=== PATIENT | female | born 1965 | race Caucasian/White ===

== ENCOUNTER 2017-02-20 14:47 | Emergency (ER) | payer OTHER ==
[~2017-02-20] VITALS: Ht 160 cm; Wt 108.3 kg
[~2017-02-20 14:47] MED LIST: ACET-2723 PO; ALBU18HF2 ORAL INH; ATOR80TA76 PO; BENZ-16 PO; BISO1TAB32 PO; BUME1TAB17 PO; BUTA1CAP53 PO; FLUT16SP NAS; HYDR50TA48 PO; IBUP200C62 PO; METH750T3 PO; OMEP20CA10 PO; PREG150C PO; PROP20TA7 PO; TRAZ-173 PO; VENL150C2 PO
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
--- OUTSIDE RECORDS SUMMARY | 2017-02-20 14:55 | XMS REPORT | Continuity of Care Document ---
Author Author Henrik [facility] LIVE Organization [facility]IVE Address Unknown Phone Unavailable Support Name Relationship Address Phone ELOINA SADLER MD Caregiver [address] [place] [address] [place] [id number] GRACIELA KOTHARI APRN Caregiver [address] [place] [address] MAGDALENA BURDEN Next Of Kin [address], [place] [id number] CP Insurance Providers Payer Name Policy Number Subscriber Name Relationship Self Pay Nina Burden 19 Self Advance Directives Directive Response Recorded Date/Time Advanced Directives Type None 09/05/14 1:34pm Problems Medical Problems Problem Onset Date Status bronchitis-acute and chronic Unknown Active Costochondritis Unknown Active Medications Medication Dose Route Sig [...] 1 Tab PO DAILY 10/26/11 06/29/12 Discontinued Hydrocodone Bit/Acetaminophen 1 Tab PO EVERY 4 HOURS 01/21/12 Active Esomeprazole Mag Trihydrate 40 Mg PO DAILY [...] EVERY 6-8 HOURS 15 Qty 09/05/14 Active Meloxicam 1 Tab PO DAILY 7 Qty 09/05/14 Active Social History Social History Problem Response Recorded Date/Time Smoking Status Never smoker 09/05/2014 12:52pm Chewing Tobacco Status No 02/06/2014 6:29pm Hx Substance Use No 09/05/2014 12:52pm Hx Alcohol Use No 09/05/2014 12:52pm Query Response Start Date Stop Date Smoking Status Never smoker Hospital Discharge Instructions No hospital discharge instructions. Plan of Care No plan of care. Functional Status Query Response Date Recorded Physical Hygiene Self September 05, 2014 12:52pm Disabilities None September 05, 2014 12:52pm Devices Used None September 05, 2014 12:52pm Dressing Self September 05, 2014 12:52pm Ambulation Self September 05, 2014 12:52pm Diet Self September 05, 2014 12:52pm Mental Status Alert Oriented September 05, 2014 12:52pm Disabilities None September 05, 2014 12:52pm Devices Used None September 05, 2014 12:52pm Physical Hygiene Self September 05, 2014 12:52pm Dressing Self September 05, 2014 12:52pm Ambulation Self September 05, 2014 12:52pm Diet Self September 05, 2014 12:52pm Allergies, Adverse Reactions, Alerts Allergen Type Severity Reaction Status Last Updated No Known Drug Allergies Allergy Unknown Active 09/05/14 Immunizations Name Given Type Hx Influenza Vaccination No Historical Hx Pneumococcal Vaccination Y 2006 Historical Hx Tetanus, Diptheria, Pertussis Y 07/04/11 Historical Hx Influenza Vaccination No Historical Hx Tetanus, Diptheria, Pertussis Y 07/04/11 Historical Vital Signs Acute Vital Signs Vital Response Date/Time Temperature (Fahrenheit) 97.4 deg F (96.8 - 99.1) Temperature (Calculated Celsius) 36.00151 degrees C (36.0 - 37.3) Pulse Rate (adult) 78 bpm (60 - 100) Respiratory Rate 16 breaths/min (10 - 20) O2 Sat by Pulse Oximetry 95 % (90 - 100) Blood Pressure 151/78 mm Hg Height 5 ft 3 in Weight 253 lb Body Mass Index 44.0 kg/m^2 Results Test Source Date Result Interp. Ref. Range Comments Activated Partial Thromboplast Time October 17, 2010 6:22pm 26.3 SEC N 24-36 Alanine Aminotransferase (ALT/SGPT) February 06, 2014 7:00pm 50 U/L N 9-52 Albumin February 06, 2014 7:00pm 5.1 G/DL H 3.5-5.0 Albumin/Globulin Ratio February 06, 2014 7:00pm 1.7 RATIO N 1.1-2.2 Alkaline Phosphatase February 06, 2014 7:00pm 130 U/L H 38-126 Amylase Level September 22, 2012 5:55pm 60 U/L N 30-110 Anion Gap February 06, 2014 7:00pm 16 MEQ/L H 5-15 Aspartate Amino Transf (AST/SGOT) February 06, 2014 7:00pm 40 U/L H 14-36 B-Type Natriuretic Peptide October 17, 2010 6:22pm < 15 PG/ML L 15-100 BUN/Creatinine Ratio February 06, 2014 7:00pm 14 RATIO N 6-26 Basophils # (Auto) February 06, 2014 7:00pm 0.0 T/MM3 N 0-0.2 Basophils (%) (Auto) February 06, 2014 7:00pm 0.5 % N 0-2 Blood Urea Nitrogen February 06, 2014 7:00pm 13.0 MG/DL N 7-17 Calcium Level February 06, 2014 7:00pm 9.7 MG/DL N 8.4-10.2 Calculated Osmolality February 06, 2014 7:00pm 274 MOSM/KG N 261-280 Carbon Dioxide Level February 06, 2014 7:00pm 27 MEQ/L N 22-30 Chloride Level February 06, 2014 7:00pm 99 MEQ/L N 98-107 Conjugated Bilirubin September 22, 2012 5:55pm 0.00 MG/DL N 0.00-0.30 Creatinine February 06, 2014 7:00pm 0.9 MG/DL N 0.7-1.2 D-Dimer October 17, 2010 6:22pm < 150 NG/ML 0-230 <224 NG/ML= PRESUMPTIVE NEGATIVE FOR PE OR DVT>224 NG/ML=ADDITIONAL EVALUATION FOR PE OR DVT RECOMMENDED Eosinophils # (Auto) February 06, 2014 7:00pm 0.1 T/MM3 N 0-0.5 Eosinophils (%) (Auto) February 06, 2014 7:00pm 0.9 % N 0-4 Follicle Stimulating Hormone February 20, 2011 12:25pm 54.4 MIU/ML - Male: 1.0 - 42.5 Jena/mLFemale Ovulating: Follicular Phase: 2.7 - 15.4 mIU/mL, Peak: 3.9 - 22.0 Jena/mL, Luteal phase: 1.0 - 14.4 mIU/mL, Postmenopausal: 25.0 - 160.0 mIU/mL Globulin February 06, 2014 7:00pm 3.0 G/DL N 2.4-3.6 Glucose Level February 06, 2014 7:00pm 112 MG/DL H 65-110 Helicobacter pylori Antibodies September 22, 2012 5:55pm Negative - Hematocrit February 06, 2014 7:00pm 43.1 % N 36-46 Hemoglobin February 06, 2014 7:00pm 15.2 GM/DL N 12-16 Human Chorionic Gonadotropin, Qual October 17, 2010 6:22pm Negative - Lipase February 06, 2014 7:00pm 128 U/L N 23-300 Luteinizing Hormone February 20, 2011 12:25pm 11.9 MIU/ML - Male: 1.7 - 11.2 mIU/mLFemale Ovulating: Follicular Phase: 1.7 - 13.3 mIU/mL, Peak: 4.1 - 68.7 mIU/mL, Luteal phase: 0.5 - 19.8 mIU/mL, Postmenopausal: 14.4 - 62.2 mIU/mL Lymphocytes # (Auto) February 06, 2014 7:00pm 4.0 T/MM3 N 1-4.8 Lymphocytes (%) (Auto) February 06, 2014 7:00pm 53.3 % H 23-45 Mean Corpuscular Hemoglobin February 06, 2014 7:00pm 30.9 UUG N 26-34 Mean Corpuscular Hemoglobin Concent February 06, 2014 7:00pm 35.3 GM/DL N 31-37 Mean Corpuscular Volume February 06, 2014 7:00pm 87.6 UM3 N 80-100 Mean Platelet Volume February 06, 2014 7:00pm 9.4 UM3 N 9.4-12.4 Monocytes # (Auto) February 06, 2014 7:00pm 0.6 T/MM3 N 0-0.8 Monocytes (%) (Auto) February 06, 2014 7:00pm 8.3 % N 0-9.0 Neutrophils # (Auto) February 06, 2014 7:00pm 2.7 T/MM3 N 1.8-7.7 Neutrophils (%) (Auto) February 06, 2014 7:00pm 36.9 % N 33-66 Ova and Parasites (LAB) July 24, 2009 2:50pm Sent out - Phenytoin (Dilantin) Level September 22, 2012 5:55pm 6.3 UG/ML L 10-20 Platelet Count February 06, 2014 7:00pm 259 T/MM3 N 130-400 Potassium Level February 06, 2014 7:00pm 3.3 MEQ/L L 3.6-5 Prolactin September 01, 2008 4:13pm Send out - Prothromb Time International Ratio October 17, 2010 6:22pm 1.07 N 0.86- 1.10 THERAPUTIC RANGE=2.00-3.00 FOR ANTI-THROMBOSIS THERAPUTIC RANGE=2.50- 3.50 FOR IMPLANTED VALVE RDW Standard Deviation February 06, 2014 7:00pm 37.8 FL N 36.9-50.2 Red Blood Count February 06, 2014 7:00pm 4.92 M/MM3 N 4.00-5.20 Sodium Level February 06, 2014 7:00pm 142 MEQ/L N 134-144 Stool Fat, Qualitative July 24, 2009 2:50pm Sent out - Stool Occult Blood July 24, 2009 2:50pm Negative - Stool for White Cells July 24, 2009 2:50pm Negative - Thyroid Stimulating Hormone (TSH) June 10, 2012 11:55am 2.11 MIU/L N 0.47-4.68 Total Bilirubin February 06, 2014 7:00pm 0.50 MG/DL N 0.20-1.30 Total Protein February 06, 2014 7:00pm 8.1 G/DL N 6.3-8.2 Troponin I October 17, 2010 6:22pm 0.001 ng/ml N 0-0.12 Unconjugated Bilirubin September 22, 2012 5:55pm 0.00 MG/DL N 0.00-1.10 Urine Amphetamines Screen September 01, 2008 4:05pm [...] - Has specimen been collected/obtained? Y Urine Cocaine Screen September 01, 2008 4:05pm [...] Has specimen been collected/obtained? Y Urine Specific [place] September 05, 2014 12:42pm 1.015 - Has [...] been collected/ obtained? Y White Blood Count February 06, 2014 7:00pm 7.4 T/MM3 N 4.5-11.0 Chemistry Specimen Hemolysis February 06, 2014 7:00pm < 15 0-25 0-25: No Hemolysis.26-70: Slight Hemolysis - can falsely elevate K and Urine Protein. 71-285: Moderate Hemolysis - can falsely elevate K, Troponin I, CA 19-9, PTH, CSF GLucose, and Urine Protein, and can falsely decrease Phenytoin. 286-999: Gross Hemolysis - can falsely elevate K, Troponin I, CA 19-9, PTH, CSF Glucose, and Urine Protine, and can falsely decrease Phenytoin. Recommend specimen recollection. Urinalysis Comment September 05, 2014 12:42pm Microscopic not ind. - Has specimen been collected/obtained? Y Lab Scanned Report September 23, 2012 12:33pm LAB TEST FORM REQUEST [id number] - EKG September 01, 2008 2:15pm Complete - Urine Cannabinoids Screen September 01, 2008 4:05pm Negative - Turbidity February 06, 2014 7:00pm < 20 0-20 Glomerular Filtration Rate Calc February 06, 2014 7:00pm 67 - Immature Granulocyte # (Auto) February 06, 2014 7:00pm 0.01 T/MM3 N 0.00- 0.03 Immature Granulocyte % (Auto) February 06, 2014 7:00pm 0.1 % N 0.0-0.5 Icterus Index February 06, 2014 7:00pm < 2 0-7 Urine Microscopic Not Indicated September 22, 2012 6:42pm Not indicated - Has specimen been collected/obtained? Y Urine Culture Urine, Clean Catch Voided October 06, 2011 2:08pm Escherichia Coli Helicobacter pylori Rapid Urease Gastric Biopsy October 02, 2012 10:17am Name: NINA BURDEN Unit #: [id number] : 1965 Sex: F Loc / Svc: ED DOS: 09/05/14 Signed Report #: [id number] DIAGNOSTIC IMAGING REPORT TYPE OF EXAM: CHEST, PA & LATERAL Dictated By: DEMETRIO CARRILLO MD INDICATION: ITS.REASON: back pain CHEST 2-VIEWS UPRIGHT (PA & LAT): COMPARISON: October 17, 2010 FINDINGS: The lungs are mildly hypoinflated, but clear without evidence of focal abnormal airspace opacity. There is no pleural effusion or pneumothorax. The heart size, mediastinal contours and pulmonary vascularity are within normal limits. There is no significant skeletal abnormality. IMPRESSION: No acute cardiopulmonary disease. . Procedures No known history of procedures. Encounters Encounter Location Date/Time Departed Emergency Room [facility] 09/05/14 12:13pm Recent Diagnosis
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
--- OUTSIDE RECORDS SUMMARY | 2017-02-20 15:01 | XMS REPORT | Continuity of Care Document ---
Author Author [facility] LIVE Organization [facility] LIVE Address Unknown Phone Unavailable Support Name Relationship Address Phone GRACIELA KOTHARI APRN Caregiver [address] [place], [place] [phone] JEREMIAH BARNARD MD Caregiver [address] [place] [address] [place] [phone] MAGDALENA BURDEN Next Of Kin [address] [place] [address] CP Insurance Providers Payer Name Policy Number Subscriber Name Relationship [facility] [id number] Nina Burden 19 Self Problems Medical Problems [...] HCl 1 Cap PO DAILY 12/19/14 Active Azithromycin 0 PO DAILY 6 Qty TAKE TWO TABLETS ON DAY ONE, 12/29/14 Active Albuterol Sulfate 2 Puff INH Q4H PRN SHORTNESS OF AIR 10 Days 12/29/14 Active Social History Social History Problem Response Recorded Date/Time Chewing Tobacco Status No 02/06/2014 6:29pm Hx Substance Use No 12/29/2014 4:53pm Hx Alcohol Use No 12/29/2014 4:53pm Has the pt used tobacco in the last 12 months No 11/30/2014 1:46pm Tobacco Usage none 09/05/2014 1:19pm Query Response Start Date Stop Date Smoking Status Unknown if ever smoked Hospital Discharge Instructions No hospital discharge instructions. Plan of Care No plan of care. Functional Status Query Response Date Recorded Physical Hygiene Self December 29, 2014 4:53pm Disabilities None December 29, 2014 4:53pm Devices Used None December 29, 2014 4:53pm Dressing Self December 29, 2014 4:53pm Ambulation Self December 29, 2014 4:53pm Diet Self December 29, 2014 4:53pm Mental Status Alert Oriented December 29, 2014 4:53pm Disabilities None December 29, 2014 4:53pm Devices Used None December 29, 2014 4:53pm Physical Hygiene Self December 29, 2014 4:53pm Dressing Self December 29, 2014 4:53pm Ambulation Self December 29, 2014 4:53pm Diet Self December 29, 2014 4:53pm Allergies, Adverse [...] Vital Signs Vital Response Date/Time Temperature (Fahrenheit) 100.8 deg F (96.8 - 99.1) Temperature (Calculated Celsius) 38.95556 degrees C (36.0 - 37.3) Pulse Rate (adult) 80 bpm (60 - 100) Respiratory Rate 16 breaths/min (10 - 20) O2 Sat by Pulse Oximetry 93 % (90 - 100) Blood Pressure 128/64 mm Hg Height 5 ft 3 in Weight 248 lb Body Mass Index 44.0 kg/m^2 Results [...] 23, 2012 12:33pm LAB TEST FORM REQUEST [id number] - Lipase February 06, 2014 7:00pm 128 [...] Has specimen been collected/obtained? Y Urine Specific [place] September 05, 2014 12:42pm 1.015 - Has [...] Escherichia Coli Name: NINA BURDEN Unit #: [id number] : 1965 Sex: F Loc / Svc: ED DOS: 12/29/14 Signed Report #: [id number] DIAGNOSTIC IMAGING REPORT TYPE OF EXAM: CHEST, [...] pneumonia. . Procedures Procedure Status Date Provider(s) INFLUENZA A/B AG EIA completed 12/19/14 THER/PROPH/DIAG INJ SC/IM completed 12/19/14 THER/PROPH/DIAG INJ SC/IM completed 12/19/14 THER/PROPH/DIAG INJ SC/IM completed 12/19/14 EMERGENCY DEPT VISIT completed 12/19/14 [id number]"INJECTION, KETOROLAC TROMETHAMINE, PER 15 MG" completed 12/19/14 [id number]"INJECTION, ORPHENADRINE CITRATE, UP TO 60 MG" completed 12/19/14 [id number]"INJECTION, PROMETHAZINE HCL, UP TO 50 MG" completed 12/19/14 Encounters Encounter Location Date/Time Departed Emergency Room 12/29/14 2:57pm Departed Emergency Room 12/19/14 11:17am Recent Diagnosis
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
--- OUTSIDE RECORDS SUMMARY | 2017-02-20 15:03 | XMS REPORT | Continuity of Care Document ---
Author Author [facility] LIVE Organization [facility]IVE Address Unknown Phone Unavailable Support Name Relationship Address Phone GRABIEL WALLACE MD Caregiver [address] [place] [address] OLIMPIA ESPINAL MD Caregiver [address] [place] [address] GRACIELA KOTHARI APRN Caregiver [address] [place] [address] MAGDALENA BURDEN Next Of Kin [address] [place] [address] CP Insurance Providers Payer Name Policy Number Subscriber Name Relationship [facility] [id number] Nina Burden 19 Self Advance Directives Directive Response Recorded Date/Time Resuscitation Documents on File Yes 11/30/14 1:47pm Problems Medical Problems Problem Onset Date Status [...] Vital Signs Vital Response Date/Time Temperature (Fahrenheit) 97.1 deg F (96.8 - 99.1) Temperature (Calculated Celsius) 36.41057 degrees C (36.0 - 37.3) Pulse Rate (adult) 64 bpm (60 - 100) Respiratory Rate 20 breaths/min (10 - 20) O2 Sat by Pulse Oximetry 97 % (90 - 100) Oxygen Delivery Method Room Air Blood Pressure 118/59 mm Hg Blood Pressure Source Automatic Cuff Height 5 ft 3 in Weight 250 lb Body Mass Index 44.0 kg/m^2 Results [...] 23, 2012 12:33pm LAB TEST FORM REQUEST [id number] - Lipase February 06, 2014 7:00pm 128 [...] Has specimen been collected/obtained? Y Urine Specific [place] September 05, 2014 12:42pm 1.015 - Has [...] Escherichia Coli Name: NINA BURDEN Unit #: [id number] : 1965 Sex: F Loc / Svc: ED DOS: 12/29/14 Signed Report #: [id number] DIAGNOSTIC IMAGING REPORT TYPE OF EXAM: CHEST, [...] 12/19/14"INJECTION, KETOROLAC TROMETHAMINE, PER 15 MG" completed 12/19/14"INJECTION, ORPHENADRINE CITRATE, UP TO 60 MG" completed 12/19/14157848"INJECTION, PROMETHAZINE HCL, UP TO 50 MG" completed [...] completed 12/29/14 Cervical epidural steroid injection completed 01/05/15 GRABIEL WALLACE MD Encounters Encounter Location Date/Time Departed Emergency Room [facility] 12/29/14 2:57pm Departed Emergency Room [facility] 12/19/14 11:17am
--- OUTSIDE RECORDS SUMMARY | 2017-02-20 15:11 | XMS REPORT | Continuity of Care Document ---
Author Author [facility] LIVE Organization [facility]IVE Address Unknown Phone Unavailable Support Name Relationship Address Phone GRABIEL WALLACE MD Caregiver [address] [place] [address] GRACIELA KOTHARI APRN Caregiver [address] [place] [address] [phone] MAGDALENA BURDEN Next Of Kin [address] [place] [address] CP Insurance Providers Payer Name Policy Number Subscriber Name Relationship [facility] [id number] Nina Burden 19 Self Advance Directives Directive [...] F (96.8 - 99.1) Temperature (Calculated Celsius) 36.56025 degrees C (36.0 - 37.3) Pulse Rate [...] - 15.4 mIU/mL, Peak: 3.9 - 22.0 Jnea/mL, Luteal phase: 1.0 - 14.4 mIU/mL, Postmenopausal: [...] 23, 2012 12:33pm LAB TEST FORM REQUEST [id number] - Lipase February 06, 2014 7:00pm 128 [...] Has specimen been collected/obtained? Y Urine Specific [place] September 05, 2014 12:42pm 1.015 - Has [...] Escherichia Coli Name: NINA BURDEN Unit #: [id number] : 1965 Sex: F Loc / Svc: ED DOS: 12/29/14 Signed Report #: [id number] DIAGNOSTIC IMAGING REPORT TYPE OF EXAM: CHEST, [...] SPINE CERV/THORACIC completed 01/05/15 GRABIEL WALLACE MD [id number]"INJECTION, METHYLPREDNISOLONE ACETATE, 80 MG" completed 01/05/15 [id number]"INJECTION, ROPIVACAINE HYDROCHLORIDE, 1 MG" completed 01/05/15 INFLUENZA A/B AG EIA completed 12/19/14 THER/PROPH/DIAG INJ SC/IM completed 12/19/14 THER/PROPH/DIAG INJ SC/IM completed 12/19/14 THER/PROPH/DIAG INJ SC/IM completed 12/19/14 EMERGENCY DEPT VISIT completed 12/19/14"INJECTION, KETOROLAC TROMETHAMINE, PER 15 MG" completed 12/19/14116574"INJECTION, ORPHENADRINE CITRATE, UP TO 60 MG" completed 12/19/14021291"INJECTION, PROMETHAZINE HCL, UP TO 50 MG" completed [...] Encounters Encounter Location Date/Time Departed Emergency Room [facility] 12/29/14 2:57pm Departed Emergency Room [facility] 12/19/14 11:17am
--- OUTSIDE RECORDS SUMMARY | 2017-02-20 15:14 | XMS REPORT | Continuity of Care Document ---
Author Author Henrik [facility] LIVE Organization [facility] LIVE Address Unknown Phone Unavailable Support Name Relationship Address Phone ELOINA SADLER MD Caregiver [address] [place] [address] [place] [phone] GRACIELA KOTHARI APRN Caregiver [address] [place] [address] MAGDALENA BURDEN Next Of Kin [address] [place], [place] [phone] CP Insurance Providers Payer Name Policy Number [...] F (96.8 - 99.1) Temperature (Calculated Celsius) 36.13854 degrees C (36.0 - 37.3) Pulse Rate [...] Has specimen been collected/obtained? Y Urine Specific [place] September 05, 2014 12:42pm 1.015 - Has [...] 23, 2012 12:33pm LAB TEST FORM REQUEST [id number] - EKG September 01, 2008 2:15pm Complete [...] 2012 10:17am Name: NINA BURDEN Unit #: [id number] : 1965 Sex: F Loc / Svc: ED DOS: 09/05/14 Signed Report #: [id number] DIAGNOSTIC IMAGING REPORT TYPE OF EXAM: CHEST, [...] Encounters Encounter Location Date/Time Departed Emergency Room [facility] 09/05/14 12:13pm Recent Diagnosis
--- OUTSIDE RECORDS SUMMARY | 2017-02-20 15:15 | XMS REPORT | Continuity of Care Document ---
Author Author Henrik [facility] LIVE Organization [facility] LIVE Address Unknown Phone Unavailable Support Name Relationship Address Phone GRACIELA KOTHARI APRN Caregiver [address] [place], [place] [phone] ALVIN WEBB MD Caregiver [address] [place] [address] [place] [phone] MAGDALENA BURDEN Next Of Kin [address] [place] [address] CP Insurance Providers Payer Name Policy Number Subscriber Name Relationship [facility] [id number] Nina Burden 19 Self Problems Medical Problems [...] F (96.8 - 99.1) Temperature (Calculated Celsius) 36.11150 degrees C (36.0 - 37.3) Pulse Rate [...] Has specimen been collected/obtained? Y Urine Specific [place] September 05, 2014 12:42pm 1.015 - Has [...] 23, 2012 12:33pm LAB TEST FORM REQUEST [id number] - EKG September 01, 2008 2:15pm Complete [...] Encounters Encounter Location Date/Time Departed Emergency Room [facility] 12/19/14 11:17am Recent Diagnosis
--- NOTE | 2017-02-20 15:17 | NUR ---
RETURNED FROM RADIOLOGY
--- OUTSIDE RECORDS SUMMARY | 2017-02-20 15:19 | XMS REPORT | Continuity of Care Document ---
Author Author [facility] LIVE Organization [facility]IVE Address Unknown Phone Unavailable Support Name Relationship Address Phone GRACIELA KOTHARI APRN Caregiver [address] [place], [place] [phone] JEREMIAH BARNARD MD Caregiver [address] [place] [address] [place] [phone] MAGDALENA BURDEN Next Of Kin [address] [place] [address] CP Insurance Providers Payer Name Policy Number Subscriber Name Relationship [facility] [id number] Nina Burden 19 Self Problems Medical Problems [...] F (96.8 - 99.1) Temperature (Calculated Celsius) 38.08825 degrees C (36.0 - 37.3) Pulse Rate [...] 23, 2012 12:33pm LAB TEST FORM REQUEST [id number] - Lipase February 06, 2014 7:00pm 128 [...] Has specimen been collected/obtained? Y Urine Specific [place] September 05, 2014 12:42pm 1.015 - Has [...] Escherichia Coli Name: NINA BURDEN Unit #: [id number] : 1965 Sex: F Loc / Svc: ED DOS: 12/29/14 Signed Report #: [id number] DIAGNOSTIC IMAGING REPORT TYPE OF EXAM: CHEST, [...] completed 12/19/14 EMERGENCY DEPT VISIT completed 12/19/14 [id number]"INJECTION, KETOROLAC TROMETHAMINE, PER 15 MG" completed 12/19/14 753951"INJECTION, ORPHENADRINE CITRATE, UP TO 60 MG" completed 12/19/14 [id number]"INJECTION, PROMETHAZINE HCL, UP TO 50 MG" completed 12/19/14 Encounters Encounter Location Date/Time Departed Emergency Room [facility] 12/29/14 2:57pm Departed Emergency Room [facility] 12/19/14 11:17am Recent Diagnosis
--- OUTSIDE RECORDS SUMMARY | 2017-02-20 15:19 | XMS REPORT | Continuity of Care Document ---
Author Author [facility] LIVE Organization [facility] LIVE Address Unknown Phone Unavailable Support Name Relationship Address Phone OLIMPIA ESPINAL MD Caregiver [address] [place], [place] [phone] JEREMIAH BARNARD MD Caregiver [address] [place] [address] [place] [phone] MAGDALENA BURDEN Next Of Kin [address] [place] [address] CP Insurance Providers Payer Name Policy Number [...] F (96.8 - 99.1) Temperature (Calculated Celsius) 36.07473 degrees C (36.0 - 37.3) Pulse Rate [...] Has specimen been collected/obtained? Y Urine Specific [place] September 05, 2014 12:42pm 1.015 - Has [...] 23, 2012 12:33pm LAB TEST FORM REQUEST [id number] - EKG September 01, 2008 2:15pm Complete [...] 2012 10:17am Name: NINA BURDEN Unit #: [id number] : 1965 Sex: F Loc / Svc: ED DOS: 09/05/14 Signed Report #: [id number] DIAGNOSTIC IMAGING REPORT TYPE OF EXAM: CHEST, [...] Encounters Encounter Location Date/Time Departed Emergency Room [facility] 09/18/14 1:38pm Departed Emergency Room [facility] 09/05/14 12:13pm Recent Diagnosis
--- OUTSIDE RECORDS SUMMARY | 2017-02-20 15:20 | XMS REPORT | Continuity of Care Document ---
Author Author [facility] LIVE Organization [facility] LIVE Address Unknown Phone Unavailable Support Name Relationship Address Phone GRABIEL WALLACE MD Caregiver [address] [place] [address] OLIMPIA ESPINAL MD Caregiver [address] [place] [address] GRACIELA KOTHARI APRN Caregiver [address] [place] [address] MAGDALENA BURDEN Next Of Kin [address] [place] [address] CP Insurance Providers Payer Name Policy Number Subscriber Name Relationship [facility] [id number] Nina Burden 19 Self Advance Directives Directive [...] F (96.8 - 99.1) Temperature (Calculated Celsius) 36.79437 degrees C (36.0 - 37.3) Pulse Rate [...] 23, 2012 12:33pm LAB TEST FORM REQUEST [id number] - Lipase February 06, 2014 7:00pm 128 [...] Has specimen been collected/obtained? Y Urine Specific [place] September 05, 2014 12:42pm 1.015 - Has [...] Escherichia Coli Name: NINA BURDEN Unit #: [id number] : 1965 Sex: F Loc / Svc: ED DOS: 12/29/14 Signed Report #: [id number] DIAGNOSTIC IMAGING REPORT TYPE OF EXAM: CHEST, [...] ORPHENADRINE CITRATE, UP TO 60 MG" completed 12/19/14898403"INJECTION, PROMETHAZINE HCL, UP TO 50 MG" completed [...] Encounters Encounter Location Date/Time Departed Emergency Room [facility] 12/29/14 2:57pm Departed Emergency Room [facility] 12/19/14 11:17am
--- NOTE | 2017-02-20 15:22 | ERPDOC ---
Departure Disposition Decision Date: Feb 20, 2017 Disposition Decision Time: 15:38 Disposition: 01 DISCHARGED HOME, SELF-CARE Impression Impression Impression: Primary Impression: Sciatica Laterality: left Qualified Codes: M54.32 - Sciatica, left side Severity: Mild Condition: Improved Seen By: Physician only Referrals: VLADIMIR SMITH DO (Family) 2 Days Patient Instructions: Sciatica (ED) Problems/Meds/Labs Reviewed?: Yes Medications reviewed and manag: Yes Follow up care ordered?: Yes Mental Status: Alert, Oriented Scripts Prednisone (Prednisone) 50 Mg Tablet 50 MG PO WB for 5 Days, #5 TAB 0 Refills Take 1 tablet, by mouth, once a day with breakfast. Prov: AVINASH VALLE 02/20/17 HPI - Back Pain General Chief Complaint: Low Back Pain or Injury Stated Complaint: BACK PAIN Time Seen by Provider: 14:57 Source: patient Exam Limitations: no limitations HPI - Back Pain Initial Comments 51-year-old female presents to the emergency department with a typical exacerbation of her chronic back pain. Patient noted onset of symptoms earlier today at approximately 11:30 AM when she picked up the back end of a motorized scooter. She began to feel pain in her lower back radiating down her left leg. Patient describes her pain as moderate. Pain is sharp. Pain increases with movement of the affected area and improves with rest and positioning. Patient denies any other complaints or associated symptoms. Patient was at work when the symptoms began. Symptoms have been persistent in nature since onset. Patient has a long-standing history of chronic back pain. Patient denies any numbness, tingling, fever, chills, saddle anesthesia, loss of bowel or bladder control, anticoagulation, abdominal pain, IV drug abuse, focal weakness, recent procedures on the spine, or other warning signs of back pain. Occurred At: work Onset/Timing: Gradual Allergies: Coded Allergies: No Known Drug Allergies (Verified Allergy, Unknown, 01/16/17) Past History Past Medical History Pt denies signifigant PMH Metabolic: hypercholesterolemia, hypertension GI: GERD, IBS, gallbladder disease Female: UTI Neurological: fibromyalgia, seizures Musculoskeletal: back pain, neck pain Integumentary: eczema Hematologic: anemia Psychological: bipolar, depression, schizophrenia Surgical History Denies Surgeries General: gallbladder, tonsils Reproductive/: hysterectomy Family History Family PMH: FOUND: [place], bipolar, cancer, depression, drug abuse, hypercholesterolemia, hypertension Vaccines Hx Influenza Vaccination: Yes (SEP 2015) Hx Pneumococcal Vaccination: No (03/08/15) Hx Tetanus, Diptheria, Pertuss: Yes (07/04/11) Social History Smoking Status: Never smoker Substance Use Type: does not use Alcohol Intake: none Review of Systems Constitutional Constitutional: DENIES: chills, fever Eyes General: DENIES: erythema, exudate Lids/Accessories: DENIES: erythema, swelling Vision: DENIES: acuity, blurring ENMT Ears: DENIES: drainage, erythema Hearing: DENIES: hearing loss Balance: DENIES: ataxia, falling to one side Sinuses: DENIES: congestion, pain Nose: DENIES: nosebleeds, pain Mouth/Throat: DENIES: painful swallowing, sore throat Teeth: DENIES: pain Jaw: DENIES: pain Cardiovascular Cardiac: DENIES: chest pain, dyspnea on exertion Rhythm/Rate: DENIES: irregular beat, palpitations Vascular: DENIES: pedal edema, unilateral swelling GI Upper Abdomen: DENIES: nausea, pain, vomiting Lower Abdomen: DENIES: diarrhea, pain General: DENIES: dysuria, pain Musculoskeletal General: pain, tenderness, DENIES: joint pain Integumentary Skin: DENIES: itching, rash Neurological General: DENIES: change in strength, headache, numbness, weakness Psychiatric Psychiatric: DENIES: emotional instability, suicidal ideation/attempt Endocrine Endocrine: DENIES: polydipsia, polyphagia Hematologic/Lymphatic Hematologic/Lymphatic: DENIES: frequent nosebleeds, lymphadenopathy Allergic/Immunological Allergic/Immunoligical: DENIES: allergic reactions, hives Physical Exam General General Nourishment: well nourished, well developed, appears stated age, no acute distress, adult General Body Habitus: well groomed Vitals and Pain First Documented Vital Signs Date Time Temp Pulse Resp B/P Pulse Ox O2 Delivery O2 Flow Rate FiO2 02/20/17 14:54 77 16 147/85 98 Room Air Weight: Kilograms: 108.300 Height (feet): 5 Height (inches): 3.00 Triage Pain Scale: RN VS reviewed by Provider: Yes Normal Exams: Head: Normocephalic w/o trauma Eyes: Pupils are PERRLA w/ EOMI, No scleral icterus, irritation, or foreign bodies noted ENMT: No facial trauma, nasal exudates, pharyngeal erythema, or exudates are noted Dental: No fractured, loose, or missing teeth noted Neck: Full range of motion, without adenopathy, JVD, bruits or thyromegaly Chest/Resp: Clear all pettit, with good airflow, and symmetry bilaterally CV: Regular rate and rhythm, without murmur or gallop, Pulses 2+ all extremities, capillary refill, <2 seconds all ext., no pedal edema noted Abdomen: Bowel sounds positive, soft, non-tender, non-distended, no hepatosplenomegaly, masses or bruits noted Lymphatic: No lymphadenopathy, or lymphedema noted Musculoskeletal: No tenderness, or deformity noted, good range of motion, all extremities Integumentary: No rashes, hives, or bruising noted, hair and nails, without abnormality Neurologic: Patient is alert, and oriented, cranial nerves, motor/sensory/ cerebellar, exams w/o gross deficits, to observation Psychiatric: Patient exhibits, appropriate attention, emotion and affect Musculoskeletal (brief) Comments Back - Full range of motion. No midline tenderness or deformity. Tender to palpation over the lower lumbar paraspinal musculature with spasm. Positive straight leg raise on the left. Neurologic (brief) Comments CN 2-12 intact. Alert and oriented x 4. Strength normal. Normal coordination. Normal sensation. Normal speech. Normal gait. Absent Babinski bilaterally. Reflexes 2/4 in all extremities. Normal motor. No focal neurologic deficit. Progress Results/Orders Orders Procedure Category Date Status Time Lumbar Spine 2-3 Views RAD 02/20/17 Resulted 15:03 Orphenadrine (Norflex) PHA 02/20/17 Complete 15:45 Ketorolac (Toradol) PHA 02/20/17 Complete 15:45 Promethazine PHA 02/20/17 Complete (Phenergan) 15:45 Medications Current ED Medications Orphenadrine Citrate (Norflex) 60 mg O ONCE IM Last administered on 02/20/17 15:51; Start 02/20/17 at 15:45; Stop 02/20/17 at 15:47; Status DC Ketorolac Tromethamine (Toradol) 60 mg O ONCE IM Last administered on 15:51; Start 02/20/17 at 15:45; Stop 02/20/17 at 15:47; Status DC Promethazine HCl (Phenergan) 12.5 mg O ONCE IM Last administered on 02/20/17t 15:52; Start 02/20/17 at 15:45; Stop 02/20/17 at 15:47; Status DC Progress Progress Imaging is discussed in detail with the patient and questions are answered. patient was given Toradol 60 mg IM x 1, Norflex 60 mg IM x 1, and Phenergan 12.5 mg IM x 1 with improvement of symptoms. This is a typical exacerbation of the patient's chronic back pain. Patient is discharged home in improved condition. Patient is to follow up as instructed. Patient is to return to the emergency Department if her condition worsens or changes in any manner. Patient is not prescribed narcotic pain medication as she has a history of addiction. Patient is to continue using her methocarbamol at home as previously scheduled and will be administered a prescription of prednisone. She can continue using [id number] acetaminophen as needed for pain control in addition to this regimen. Patient is in agreement with the current plan of management. She is discharged home in improved condition. She is to follow up as instructed. She is to return to the emergency Department if her condition worsens or changes in any manner. Temperature: 37.9 deg. C. Xray Xray : Xray: L-Spine Interpretation: Normal, Reviewed Written Report AVINASH VALLE DO Feb 20, 2017 15:22
--- NOTE | 2017-02-20 15:28 | DI ---
Indication: ITS.REASON: back pain PROCEDURE: LUMBAR SPINE 3 VIEWS: Encounter: Initial Comparison: January 16, 2017 Findings: Alignment of the lumbar spine is stable. No acute fracture or subluxation. Vertebral body heights are maintained. Minimal disk space narrowing at L3-L4 with small osteophytes. The remaining disk spaces are normal. Impression: No acute fracture. Minimal degenerative disk disease at L3-L4. .
[2017-02-20] MEDS ORDERED: PRED50TA PO (15:40)
[2017-02-20] MEDS ORDERED: PROMETHAZINE 25 MG INJECTION IM ONE (15:45)
[2017-02-20] MEDS ORDERED: KETOROLAC 60mg/2ml INJECTION IM ONE (15:45)
[2017-02-20] MEDS ORDERED: ORPHENADRINE 60mg/2ml INJECTION IM ONE (15:45)
[2017-02-20] MEDS ORDERED: BUSP15TA3 PO (15:49)
[2017-02-20] MEDS ORDERED: BUPR100T5 PO (15:50)
--- NOTE | 2017-02-20 15:51 | NUR ---
IM INJECTIONS GIVEN PER ORDERS. RATES PAIN 08/03
[2017-02-20 16:05] VITALS: BP 126/71; PULSE 75; RESP 16; TEMP 97.9; O2SAT 95
== END 2017-02-20 16:05 | disposition home or self-care (01) ==
LOC: ED 14:47
DX: M54.42 Lumbago with sciatica, left side (principal); X50.0XXA Overexertion from strenuous movement or load, initial encounter; Y93.89 Activity, other specified; Y92.9 Unspecified place or not applicable; Y99.0 Civilian activity done for income or pay
CPT/HCPCS: 72100; 96372; 99283; J1885; J2360; J2550

== ENCOUNTER 2017-03-31 19:46 | Emergency (ER) | payer SELFPAY ==
[~2017-03-31] VITALS: Ht 160 cm; Wt 107.8 kg
[~2017-03-31 19:46] MED LIST changes: -ALBU18HF2 ORAL INH; -ATOR80TA76 PO; -BENZ-16 PO; +BUPR100T5 PO; +BUSP15TA3 PO; +FLUT16SP EA NOSTRIL; -FLUT16SP NAS; -HYDR50TA48 PO; -OMEP20CA10 PO; +PRED50TA PO
--- OUTSIDE RECORDS SUMMARY | 2017-03-31 19:51 | XMS REPORT | Continuity of Care Document ---
Author Author [facility] LIVE Organization [facility] LIVE Address Unknown Phone Unavailable Support Name Relationship Address Phone GRABIEL WALLACE MD Caregiver [address] [place] [address] GRACIELA KOTHARI APRN Caregiver [address] [place] [address] [phone] MAGDALENA BURDEN Next Of Kin [address] [place] [address] CP Insurance Providers Payer Name Policy Number Subscriber Name Relationship [facility] [id number] Nina Burden 19 Self Advance Directives Directive [...] F (96.8 - 99.1) Temperature (Calculated Celsius) 36.23616 degrees C (36.0 - 37.3) Pulse Rate [...] 23, 2012 12:33pm LAB TEST FORM REQUEST [id number] - Lipase February 06, 2014 7:00pm 128 [...] Has specimen been collected/obtained? Y Urine Specific [place] September 05, 2014 12:42pm 1.015 - Has [...] Escherichia Coli Name: NINA BURDEN Unit #: [id number] : 1965 Sex: F Loc / Svc: ED DOS: 12/29/14 Signed Report #: [id number] DIAGNOSTIC IMAGING REPORT TYPE OF EXAM: CHEST, [...] SPINE CERV/THORACIC completed 01/05/15 GRABIEL WALLACE MD [id number]"INJECTION, METHYLPREDNISOLONE ACETATE, 80 MG" completed 01/05/15 260842"INJECTION, ROPIVACAINE HYDROCHLORIDE, 1 MG" completed 01/05/15 INFLUENZA A/B AG EIA completed 12/19/14 THER/PROPH/DIAG INJ SC/IM completed 12/19/14 THER/PROPH/DIAG INJ SC/IM completed 12/19/14 THER/PROPH/DIAG INJ SC/IM completed 12/19/14 EMERGENCY DEPT VISIT completed 12/19/14"INJECTION, KETOROLAC TROMETHAMINE, PER 15 MG" completed 12/19/14669331"INJECTION, ORPHENADRINE CITRATE, UP TO 60 MG" completed 12/19/14152753"INJECTION, PROMETHAZINE HCL, UP TO 50 MG" completed [...] Encounters Encounter Location Date/Time Departed Emergency Room [facility] 12/29/14 2:57pm Departed Emergency Room [facility] 12/19/14 11:17am
--- OUTSIDE RECORDS SUMMARY | 2017-03-31 19:54 | XMS REPORT | Continuity of Care Document ---
Author Author [facility]rik [facility] LIVE Organization [facility] LIVE Address Unknown Phone Unavailable Support Name Relationship Address Phone ELOINA SADLER MD Caregiver [address] [place] [address] [place] [phone] GRACIELA KOTHARI APRN Caregiver [address] [place] [address] MAGDALENA BURDEN Next Of Kin [address] [place], [place] [phone] CP Insurance Providers Payer Name Policy Number [...] F (96.8 - 99.1) Temperature (Calculated Celsius) 36.05621 degrees C (36.0 - 37.3) Pulse Rate [...] Has specimen been collected/obtained? Y Urine Specific [place] September 05, 2014 12:42pm 1.015 - Has [...] 23, 2012 12:33pm LAB TEST FORM REQUEST [id number] - EKG September 01, 2008 2:15pm Complete [...] 2012 10:17am Name: NINA BURDEN Unit #: [id number] : 1965 Sex: F Loc / Svc: ED DOS: 09/05/14 Signed Report #: [id number] DIAGNOSTIC IMAGING REPORT TYPE OF EXAM: CHEST, [...] Encounters Encounter Location Date/Time Departed Emergency Room [facility] 09/05/14 12:13pm Recent Diagnosis
--- OUTSIDE RECORDS SUMMARY | 2017-03-31 19:54 | XMS REPORT | Continuity of Care Document ---
Author Author Henrik [facility] LIVE Organization [facility] LIVE Address Unknown Phone Unavailable Support Name Relationship Address Phone GRACIELA KOTHARI APRN Caregiver [address] [place], [place] [phone] ALVIN WEBB MD Caregiver [address] [place] [address] [place] [phone] MAGDALENA BURDEN Next Of Kin [address] [place] [address] CP Insurance Providers Payer Name Policy Number Subscriber Name Relationship [facility] [id number] Nina Burden 19 Self Problems Medical Problems [...] F (96.8 - 99.1) Temperature (Calculated Celsius) 36.72169 degrees C (36.0 - 37.3) Pulse Rate [...] Has specimen been collected/obtained? Y Urine Specific [place] September 05, 2014 12:42pm 1.015 - Has [...] 23, 2012 12:33pm LAB TEST FORM REQUEST [id number] - EKG September 01, 2008 2:15pm Complete [...] Encounters Encounter Location Date/Time Departed Emergency Room [facility] 12/19/14 11:17am Recent Diagnosis
[2017-03-31 19:55] VITALS: BP 155/81; PULSE 107; RESP 20; TEMP 99.1; O2SAT 93; Ht 160 cm; Wt 107.8 kg
--- OUTSIDE RECORDS SUMMARY | 2017-03-31 19:56 | XMS REPORT | Continuity of Care Document ---
Author Author [facility] Organization [facility] Address Unknown Phone Unavailable Support Name Relationship Address Phone AVINASH VALLE DO Caregiver [address] [place] [address] Unavailable STARLA WHITE APRN Caregiver [address] [place] [address] Unavailable MAGDALENA BURDEN Next Of Kin [address] [place] [address] CP Insurance Providers Guarantor Nina Burden Address [address] [place] [phone] CP Email DENIED 17 Payer Workers Compensation Subscriber's Name JeniseNina Relationship 18 Self Advance Directives Directive Response Recorded Date/Time Advanced Directives Type None 02/20/17 2:54pm Chief Complaint and Reason for Visit Chief [...] pneumonia Unknown Acute RML pneumonia Unknown Acute Sciatica Unknown Acute Strep pharyngitis Unknown Acute Thoracic [...] 4 Hours as needed for Pain/Fever 06/11/16 Bisoprolol Fumarate/Hctz (Ziac 5-6.25 Mg Tablet) 1 Each Tablet 1 Tab Oral Daily 05/23/15 Bumetanide 1 Mg Tablet 1 Mg Oral Twice A Day 06/11/16 Bupropion Hcl (Wellbutrin Sr) Unknown Strength Tablet.er 2 Tab Oral Twice A Day 02/20/17 Buspirone Hcl 15 Mg Tablet 15 Mg Oral Daily 02/20/17 Butalb/Acetaminophen/Caffeine (Fioricet 50-300-40 Mg Capsule) 1 Each Capsule 1 Cap Oral Every Eight Hours for Headache 10 10/31/16 Fluticasone Propionate (Fluticasone Prop 50 Mcg/Actuation Nasal [place]) 120 [place]/16 G [place] 1 [place] Intranasal Daily 01/05/16 Ibuprofen 200 Mg Capsule 800 Mg Oral Every 8 Hours as needed for Pain 06/11/16 Methocarbamol 750 Mg Tablet 750 Mg Oral Three Times A Day as needed for Prn Orders 05/23/15 Prednisone 50 Mg Tablet 50 Mg Oral Give With Breakfast 5 Days 5 Tablet Take 1 tablet, by mouth, once a day with breakfast. 02/20/17 Pregabalin (Lyrica) 150 Mg Capsule 150 Mg [...] Applicable Not Applicable Hx Substance Use No 02/20/2017 3:02pm Not Applicable Not Applicable Hx Alcohol Use No 02/20/2017 3:02pm Not Applicable Not Applicable Has the pt used tobacco in the last 12 months No 01/23/2016 10:56pm Not Applicable Not Applicable Tobacco Usage none 01/24/2016 12:13am Not Applicable Not Applicable Query Response Start Date Stop Date Smoking Status Never smoker Hospital Discharge Instructions No hospital discharge instructions. Plan of Care Discharge Date 02/20/17 4:05pm Disposition 01 DISCHARGED HOME, SELF-CARE Condition at Discharge Improved Instructions/Education Provided Sciatica (ED) Prescriptions See Medication Section Referrals VLADIMIR SMITH DO Order Date: 2 Days Address: [address] [place] [phone] Note: Care Plan and Goals Physician Care [...] Y 07/04/11 05/23/15 9:30am Influenza Vaccine Hx 01/201602/20/17 3:02pm Vital Signs Acute Vital Signs Vital Response Date/Time Temperature (Fahrenheit) 97.9 deg F (96.8 - 99.1) 02/20/2017 4:05pm Temperature (Calculated Celsius) 36.02516 degrees C (36.0 - 37.3) 02/20/2017 4:05pm Pulse Rate (adult) 75 bpm (60 - 100) 02/20/2017 4:05pm Respiratory Rate 16 breaths/min (10 - 20) 02/20/2017 4:05pm O2 Sat by Pulse Oximetry 95 % (90 - 100) 02/20/2017 4:05pm Blood Pressure 126/71 mm Hg 02/20/2017 4:05pm Height (Feet) 5 feet 02/20/2017 2:54pm Height (Inches) 3.00 inches 02/20/2017 2:54pm Weight (Kilograms) 108.300 kg 02/20/2017 2:54pm Body Mass Index (BMI) 42.0 01/16/2017 10:32am [...] 12/04/2016 2:15pm Name: NINA BURDEN Unit #: [id number] : 1965 Sex: F Admit Date: Loc / Svc: ED Discharge Date: DIAGNOSTIC IMAGING REPORT Report #: [id number] [facility] [place]ICA [place] Indication: ITS.REASON: back pain PROCEDURE: LUMBAR SPINE 3 VIEWS: Encounter: Initial Comparison: January 16, 2017 Findings: Alignment of the lumbar spine is stable. No acute fracture or subluxation. Vertebral body heights are maintained. Minimal disk space narrowing at L3-L4 with small osteophytes. The remaining disk spaces are normal. Impression: No acute fracture. Minimal degenerative disk disease at L3-L4. . Procedures No known history of procedures. Encounters Encounter Location Arrival/Admit Date Discharge/Depart Date Attending Provider Departed Emergency Room [facility] 02/20/17 2:47pm 02/20/17 4: 05pm AVINASH VALLE DO Departed Emergency Room [facility] 01/16/17 10:14am 01/16/17 12: 25pm AVINASH VALLE DO Registered Clinic [facility] 12/14/16 1:51pm VLADIMIR SMITH DO Registered [facility] 12/04/16 1:39pm VLADIMIR SMITH DO Recent Diagnosis
--- OUTSIDE RECORDS SUMMARY | 2017-03-31 19:58 | XMS REPORT | Continuity of Care Document ---
Author Author [facility] Organization [facility] Address Unknown Phone Unavailable Support Name Relationship Address Phone GRACIELA KOTHARI APRN Caregiver [address] [place], [place] [phone] JEREMIAH BARNARD MD Caregiver [address] [place] [address] [place] [phone] MAGDALENA BURDEN Next Of Kin [address] [place] [address] CP Insurance Providers Payer Name Policy Number Subscriber Name Relationship [facility] [id number] Nina Burden 19 Self Problems Medical Problems [...] F (96.8 - 99.1) Temperature (Calculated Celsius) 38.84734 degrees C (36.0 - 37.3) Pulse Rate [...] 23, 2012 12:33pm LAB TEST FORM REQUEST [id number] - Lipase February 06, 2014 7:00pm 128 [...] Has specimen been collected/obtained? Y Urine Specific [place] September 05, 2014 12:42pm 1.015 - Has [...] Escherichia Coli Name: NINA BURDEN Unit #: [id number] : 1965 Sex: F Loc / Svc: ED DOS: 12/29/14 Signed Report #: [id number] DIAGNOSTIC IMAGING REPORT TYPE OF EXAM: CHEST, PA & LATERAL Dictated By: DEMETROI CARRILLO MD INDICATION: ITS.REASON: cough, fever CHEST [...] completed 12/19/14 EMERGENCY DEPT VISIT completed 12/19/14 [id number]"INJECTION, KETOROLAC TROMETHAMINE, PER 15 MG" completed 12/19/14 838816"INJECTION, ORPHENADRINE CITRATE, UP TO 60 MG" completed 12/19/14 160938"INJECTION, PROMETHAZINE HCL, UP TO 50 MG" completed 12/19/14 Encounters Encounter Location Date/Time Departed Emergency Room [facility] 12/29/14 2:57pm Departed Emergency Room [facility] 12/19/14 11:17am Recent Diagnosis
--- OUTSIDE RECORDS SUMMARY | 2017-03-31 19:58 | XMS REPORT | Continuity of Care Document ---
Author Author [facility] Organization [facility] Address Unknown Phone Unavailable Support Name Relationship Address Phone OLIMPIA ESPINAL MD Caregiver [address] [place], [place] [phone] JEREMIAH BARNARD MD Caregiver [address] [place] [address] [place] [phone] MAGDALENA BURDEN Next Of Kin [address] [place] [address] CP Insurance Providers Payer Name Policy Number [...] F (96.8 - 99.1) Temperature (Calculated Celsius) 36.73981 degrees C (36.0 - 37.3) Pulse Rate [...] Has specimen been collected/obtained? Y Urine Specific [place] September 05, 2014 12:42pm 1.015 - Has [...] 23, 2012 12:33pm LAB TEST FORM REQUEST [id number] - EKG September 01, 2008 2:15pm Complete [...] 2012 10:17am Name: NINA BURDEN Unit #: [id number] : 1965 Sex: F Loc / Svc: ED DOS: 09/05/14 Signed Report #: [id number] DIAGNOSTIC IMAGING REPORT TYPE OF EXAM: CHEST, [...] Departed Emergency Room [facility] 09/18/14 1:38pm Departed Emergency Room [facility] 09/05/14 12:13pm Recent Diagnosis
--- OUTSIDE RECORDS SUMMARY | 2017-03-31 19:59 | XMS REPORT | Continuity of Care Document ---
Author Author [facility] Organization [facility] Address Unknown Phone Unavailable Support Name Relationship Address Phone GRABIEL WALLACE MD Caregiver [address] [place] [address] OLIMPIA ESPINAL MD Caregiver [address] [place] [address] GRACIELA KOTHARI APRN Caregiver [address] [place] [address] MAGDALENA BURDEN Next Of Kin [address] [place] [address] CP Insurance Providers Payer Name Policy Number Subscriber Name Relationship [facility] [id number] Nina Burden 19 Self Advance Directives Directive [...] F (96.8 - 99.1) Temperature (Calculated Celsius) 36.03868 degrees C (36.0 - 37.3) Pulse Rate [...] 23, 2012 12:33pm LAB TEST FORM REQUEST [id number] - Lipase February 06, 2014 7:00pm 128 [...] Has specimen been collected/obtained? Y Urine Specific [place] September 05, 2014 12:42pm 1.015 - Has [...] Escherichia Coli Name: NINA BURDEN Unit #: [id number] : 1965 Sex: F Loc / Svc: ED DOS: 12/29/14 Signed Report #: [id number] DIAGNOSTIC IMAGING REPORT TYPE OF EXAM: CHEST, [...] ORPHENADRINE CITRATE, UP TO 60 MG" completed 12/19/14675586"INJECTION, PROMETHAZINE HCL, UP TO 50 MG" completed [...] Encounters Encounter Location Date/Time Departed Emergency Room [facility] 12/29/14 2:57pm Departed Emergency Room [facility] 12/19/14 11:17am
[2017-03-31] MEDS ORDERED: BUPR300T57 PO (20:14)
[2017-03-31] MEDS ORDERED: BUPR-115 PO (20:14)
[2017-03-31] MEDS ORDERED: BUSP30TA2 PO (20:16)
[2017-03-31] MEDS ORDERED: BUTA1CAP53 PO (20:18)
[2017-03-31] MEDS ORDERED: OMEP20CA10 PO (20:19)
[2017-03-31] MEDS ORDERED: ALBU18HF2 INH (20:19)
[2017-03-31] MEDS ORDERED: TRAZ300T2 PO (20:19)
--- NOTE | 2017-03-31 20:37 | ERPDOC ---
Departure Disposition Decision Date: March 31, 2017 Disposition Decision Time: 20:49 (TANMAY SHAHA Kar INBOUND SALES REPRESENTATIVE) Disposition: 01 DISCHARGED HOME, SELF-CARE Impression Impression (CHANTALE SHAH INBOUND SALES REPRESENTATIVE) Impression: Primary Impression: Laceration Severity: Moderate (NOVAZQUEZESA N INBOUND SALES REPRESENTATIVE) Condition: Stable Seen By: Mid-level only (CHANTALE SHAH INBOUND SALES REPRESENTATIVE) Referrals: STARLA WHITE APRN (Family) Patient Instructions: Laceration (ED) Problems/Meds/Labs Reviewed?: Yes Medications reviewed and manag: Yes (RODRIGUEZESA Kar INBOUND SALES REPRESENTATIVE) Additional Instructions: Have sutures taken out in 10-14 days with your primary care provider. Clean the laceration daily with soap and water at home. If any further issues/concerns then return to ER for reevaluation. Follow up care ordered?: Yes Mental Status: Alert (CHANTALE SHAH INBOUND SALES REPRESENTATIVE) HPI - Skin General General Chief Complaint: Laceration Stated Complaint: FOOT LACERATION Time Seen by Provider: 20:12 Source: patient Exam Limitations: no limitations (RODRIGUEZESA Kar INBOUND SALES REPRESENTATIVE) Time Seen by Provider: 20:12 (GRANT LOVETT MD) HPI - Skin General Initial Comments She was at home tonight and was laying on the floor. Rolled over and the blade for a geomagnetist was on the floor and she cut her ankle on the blade. Does not know her last tetanus vaccine. Is here for laceration repair. Occurred At: home Onset: Rapid Duration: 1 hr Severity: moderate Location: extremities (right ankle) Possible Cause: other (cut on geomagnetist blade) Associated Symptoms: denies symptoms Hx of Similar Symptoms: No (NOANN MARIE,CHANTALE N INBOUND SALES REPRESENTATIVE) Allergies: Coded Allergies: No Known Drug Allergies (Verified Allergy, Unknown, 01/16/17) Past History Past Medical History Pt denies signifigant PMH Metabolic: hypercholesterolemia, hypertension GI: GERD, IBS, gallbladder disease Female: UTI Neurological: fibromyalgia, seizures Musculoskeletal: back pain, neck pain Integumentary: eczema Hematologic: anemia Psychological: bipolar, depression, schizophrenia (NOANN MARIE,CHANTALE N INBOUND SALES REPRESENTATIVE) Surgical History Denies Surgeries General: gallbladder, tonsils Reproductive/: hysterectomy (RODRIGUEZESA N INBOUND SALES REPRESENTATIVE) Family History Family PMH: FOUND: [place], bipolar, cancer, depression, drug abuse, hypercholesterolemia, hypertension (CHANTALE SHAH APRN) Vaccines Hx Influenza Vaccination: Yes (SEP 2015) Hx Pneumococcal Vaccination: No (03/08/15) Hx Tetanus, Diptheria, Pertuss: Yes (07/04/11) (CHANTALE SHAH APRN) Social History Substance Use Type: does not use Alcohol Intake: none (CHANTALE SHAH APRN) Review of Systems Constitutional Constitutional: DENIES: chills, dizziness, fatigue, fever, weakness (CHANTALE SHAH APRN) Musculoskeletal General: pain (at site of laceration on right ankle) (CHANTALE SHAH APRN) Integumentary Skin: other (Laceration on the right ankle) (CHANTALE SHAH APRN) Physical Exam General General Nourishment: well nourished, well developed, appears stated age, no acute distress, adult General Body Habitus: well groomed (CHANTALE SHAH APRN) Vitals and Pain First Documented Vital Signs Date Time Temp Pulse Resp B/P Pulse Ox O2 Delivery O2 Flow Rate FiO2 03/31/17 19:55 99.1 107 20 155/81 93 Room Air (GRANT LOVETT MD) Vitals and Pain Weight: Kilograms: 107.800 Height (feet): 5 Height (inches): 3.00 Triage Pain Scale: (CHANTALE SHAH APRN) RN VS reviewed by Provider: Yes (CHANTALE SHAH APRN) Normal Exams: Neurologic: Patient is alert, and oriented Psychiatric: Patient exhibits, appropriate attention, emotion and affect (CHANTALE SHAH APRN) Integumentary (brief) Integumentary Brief: FOUND: other (3cm laceration on the right ankle region) ( CHANTALE SHAH APRN) Differential Diagnoses Considering: Laceration, Other (tendon injury, FB in skin) (CHANTALE SHAH APRN) Procedures Procedures Performed Procedures Performed: Laceration Repair (CHANTALE SHAH APRN) Laceration/Wound Repair Wound/Laceration Repair : Wound Location: lower extremity (right ankle) Wound Length (cm): 3 Depth, Shape: subcutaneous, linear Explored: clean Irrigated: saline Prep: chlorasept Anesthesia: 1% Lidocaine Volume Anesthetic (ccs): 1 Repaired With: Sutures Suture Size: 4:0 Suture Type: prolene Number of Sutures: 3 Layer Closure?: No (CHANTALE SHAH APRN) Progress Results/Orders Orders Procedure Category Date Status Time Lidocaine 1% PHA 03/31/17 Complete (Xylocaine 1%) 20:45 Tetanus,Diphth,A PHA 03/31/17 Complete Pertus (Tdap) (Adacel) 20:45 (GRANT LOVETT MD) Medications Current ED Medications Lidocaine HCl (Xylocaine 1%) 100 mg O ONCE INFIL Last administered on 21:11; Start 03/31/17 at 20:45; Stop 03/31/17 at 20:46; Status DC Diphtheria/ Tetanus/Acell Pertussis (Adacel) 0.5 ml O ONCE IM Last administered on 03/31/17 21:11; Start 03/31/17 at 20:45; Stop 03/31/17 at 20:46; Status DC (GRANT LOVETT MD) Progress Progress Have sutures taken out in 10-14 days with PCP. May keep covered with antibiotic ointment. Follow up with PCP if any other issues/concerns. Tetanus was updated today in ER. (CHANTALE SHAH APRN) CHANTALE SHAH APRN March 31, 2017 20:37 GRANT LOVETT MD April 01, 2017 01:47
[2017-03-31] MEDS ORDERED: LIDOCAINE 1% (10mg/ml) 30ml SDV INFIL ONE (20:45)
[2017-03-31] MEDS ORDERED: TETANUS,DIPHTH,a PERTUS (Tdap) 0.5 ML VIAL IM ONE (20:45)
--- OUTSIDE RECORDS SUMMARY | 2017-03-31 21:19 | XMS REPORT | Continuity of Care Document ---
Author Author [facility] Organization [facility] Address Unknown Phone Unavailable Support Name Relationship Address Phone GRABIEL WALLACE MD Caregiver [address] [place] [address] GRACIELA KOTHARI APRN Caregiver [address] [place] [address] [phone] MAGDALENA BURDEN Next Of Kin [address] [place] [address] CP Insurance Providers Payer Name Policy Number Subscriber Name Relationship [facility] [id number] Nian Burden 19 Self Advance Directives Directive Response [...] F (96.8 - 99.1) Temperature (Calculated Celsius) 36.17934 degrees C (36.0 - 37.3) Pulse Rate [...] 23, 2012 12:33pm LAB TEST FORM REQUEST [id number] - Lipase February 06, 2014 7:00pm 128 [...] Has specimen been collected/obtained? Y Urine Specific [place] September 05, 2014 12:42pm 1.015 - Has [...] Escherichia Coli Name: NINA BURDEN Unit #: [id number] : 1965 Sex: F Loc / Svc: ED DOS: 12/29/14 Signed Report #: [id number] DIAGNOSTIC IMAGING REPORT TYPE OF EXAM: CHEST, [...] SPINE CERV/THORACIC completed 01/05/15 GRABIEL WALLACE MD [id number]"INJECTION, METHYLPREDNISOLONE ACETATE, 80 MG" completed 01/05/15 294120"INJECTION, ROPIVACAINE HYDROCHLORIDE, 1 MG" completed 01/05/15 INFLUENZA A/B AG EIA completed 12/19/14 THER/PROPH/DIAG INJ SC/IM completed 12/19/14 THER/PROPH/DIAG INJ SC/IM completed 12/19/14 THER/PROPH/DIAG INJ SC/IM completed 12/19/14 EMERGENCY DEPT VISIT completed 12/19/14"INJECTION, KETOROLAC TROMETHAMINE, PER 15 MG" completed 12/19/14928428"INJECTION, ORPHENADRINE CITRATE, UP TO 60 MG" completed 12/19/14235345"INJECTION, PROMETHAZINE HCL, UP TO 50 MG" completed [...] Encounters Encounter Location Date/Time Departed Emergency Room [facility] 12/29/14 2:57pm Departed Emergency Room [facility] 12/19/14 11:17am
--- OUTSIDE RECORDS SUMMARY | 2017-03-31 21:22 | XMS REPORT | Continuity of Care Document ---
Author Author [facility] Organization [facility] Address Unknown Phone Unavailable Support Name Relationship Address Phone GRACIELA KOTHARI APRN Caregiver [address] [place], [place] [phone] ALVIN WEBB MD Caregiver [address] [place] [address] [place] [phone] MAGDALENA BURDEN Next Of Kin [address] [place] [address] CP Insurance Providers Payer Name Policy Number Subscriber Name Relationship [facility] [id number] Nina Burden 19 Self Problems Medical Problems [...] F (96.8 - 99.1) Temperature (Calculated Celsius) 36.33154 degrees C (36.0 - 37.3) Pulse Rate [...] Has specimen been collected/obtained? Y Urine Specific [place] September 05, 2014 12:42pm 1.015 - Has [...] 23, 2012 12:33pm LAB TEST FORM REQUEST [id number] - EKG September 01, 2008 2:15pm Complete [...] Encounters Encounter Location Date/Time Departed Emergency Room [facility] 12/19/14 11:17am Recent Diagnosis
--- OUTSIDE RECORDS SUMMARY | 2017-03-31 21:22 | XMS REPORT | Continuity of Care Document ---
Author Author [facility] Organization [facility] Address Unknown Phone Unavailable Support Name Relationship Address Phone ELOINA SADLER MD Caregiver [address] [place] [address] [place] [phone] GRACIELA KOTHARI APRN Caregiver [address] [place] [address] MAGDALENA BURDEN Next Of Kin [address] [place], [place] [phone] CP Insurance Providers Payer Name Policy Number [...] F (96.8 - 99.1) Temperature (Calculated Celsius) 36.69755 degrees C (36.0 - 37.3) Pulse Rate [...] Has specimen been collected/obtained? Y Urine Specific [place] September 05, 2014 12:42pm 1.015 - Has [...] 23, 2012 12:33pm LAB TEST FORM REQUEST [id number] - EKG September 01, 2008 2:15pm Complete [...] 2012 10:17am Name: NINA BURDEN Unit #: [id number] : 1965 Sex: F Loc / Svc: ED DOS: 09/05/14 Signed Report #: [id number] DIAGNOSTIC IMAGING REPORT TYPE OF EXAM: CHEST, [...] Encounters Encounter Location Date/Time Departed Emergency Room [facility] 09/05/14 12:13pm Recent Diagnosis
--- OUTSIDE RECORDS SUMMARY | 2017-03-31 21:25 | XMS REPORT | Continuity of Care Document ---
Author Author [facility] Organization [facility] Address Unknown Phone Unavailable Support Name Relationship Address Phone GRACIELA KOTHARI APRN Caregiver [address] [place], [place] [phone] JEREMIAH BARNARD MD Caregiver [address] [place] [address] [place] [phone] MAGDALENA BURDEN Next Of Kin [address] [place] [address] CP Insurance Providers Payer Name Policy Number Subscriber Name Relationship [facility] [id number] Nina Burden 19 Self Problems Medical Problems [...] F (96.8 - 99.1) Temperature (Calculated Celsius) 38.56335 degrees C (36.0 - 37.3) Pulse Rate [...] 23, 2012 12:33pm LAB TEST FORM REQUEST [id number] - Lipase February 06, 2014 7:00pm 128 [...] Has specimen been collected/obtained? Y Urine Specific [place] September 05, 2014 12:42pm 1.015 - Has [...] Escherichia Coli Name: NINA BURDEN Unit #: [id number] : 1965 Sex: F Loc / Svc: ED DOS: 12/29/14 Signed Report #: [id number] DIAGNOSTIC IMAGING REPORT TYPE OF EXAM: CHEST, [...] completed 12/19/14 EMERGENCY DEPT VISIT completed 12/19/14 [id number]"INJECTION, KETOROLAC TROMETHAMINE, PER 15 MG" completed 12/19/14 105552"INJECTION, ORPHENADRINE CITRATE, UP TO 60 MG" completed 12/19/14 718963"INJECTION, PROMETHAZINE HCL, UP TO 50 MG" completed 12/19/14 Encounters Encounter Location Date/Time Departed Emergency Room [facility] 12/29/14 2:57pm Departed Emergency Room [facility] 12/19/14 11:17am Recent Diagnosis
--- OUTSIDE RECORDS SUMMARY | 2017-03-31 21:26 | XMS REPORT | Continuity of Care Document ---
Author Author [facility] Organization [facility] Address Unknown Phone Unavailable Support Name Relationship Address Phone OLIMPIA ESPINAL MD Caregiver [address] [place], [place] [phone] JEREMIAH BARNARD MD Caregiver [address] [place] [address] [place] [phone] MAGDALENA BURDEN Next Of Kin [address] [place] [address] CP Insurance Providers Payer Name Policy Number [...] F (96.8 - 99.1) Temperature (Calculated Celsius) 36.82443 degrees C (36.0 - 37.3) Pulse Rate [...] Has specimen been collected/obtained? Y Urine Specific [place] September 05, 2014 12:42pm 1.015 - Has [...] 23, 2012 12:33pm LAB TEST FORM REQUEST [id number] - EKG September 01, 2008 2:15pm Complete [...] 2012 10:17am Name: NINA BURDEN Unit #: [id number] : 1965 Sex: F Loc / Svc: ED DOS: 09/05/14 Signed Report #: [id number] DIAGNOSTIC IMAGING REPORT TYPE OF EXAM: CHEST, [...] Encounters Encounter Location Date/Time Departed Emergency Room [facility] 09/18/14 1:38pm Departed Emergency Room [facility] 09/05/14 12:13pm Recent Diagnosis
--- OUTSIDE RECORDS SUMMARY | 2017-03-31 21:27 | XMS REPORT | Continuity of Care Document ---
Author Author [facility] Organization [facility] Address Unknown Phone Unavailable Support Name Relationship Address Phone GRABIEL WALLACE MD Caregiver [address] [place] [address] OLIMPIA ESPINAL MD Caregiver [address] [place] [address] GRACIELA KOTHARI APRN Caregiver [address] [place] [address] MAGDALENA BURDEN Next Of Kin [address] [place] [address] CP Insurance Providers Payer Name Policy Number Subscriber Name Relationship [facility] [id number] Nina Burden 19 Self Advance Directives Directive [...] F (96.8 - 99.1) Temperature (Calculated Celsius) 36.50006 degrees C (36.0 - 37.3) Pulse Rate [...] 23, 2012 12:33pm LAB TEST FORM REQUEST [id number] - Lipase February 06, 2014 7:00pm 128 [...] Has specimen been collected/obtained? Y Urine Specific [place] September 05, 2014 12:42pm 1.015 - Has [...] Escherichia Coli Name: NINA BURDEN Unit #: [id number] : 1965 Sex: F Loc / Svc: ED DOS: 12/29/14 Signed Report #: [id number] DIAGNOSTIC IMAGING REPORT TYPE OF EXAM: CHEST, [...] ORPHENADRINE CITRATE, UP TO 60 MG" completed 12/19/14202911"INJECTION, PROMETHAZINE HCL, UP TO 50 MG" completed [...] Departed Emergency Room [facility] 12/29/14 2:57pm Departed Emergency Room [facility] 12/19/14 11:17am
== END 2017-03-31 21:10 | disposition home or self-care (01) ==
LOC: ED 19:46
DX: S91.011A Laceration without foreign body, right ankle, initial encounter (principal); W29.0XXA Contact with powered kitchen appliance, initial encounter; Y93.89 Activity, other specified; Y92.009 Unspecified place in unspecified non-institutional (private) residence as the place of occurrence of the external cause; Y99.8 Other external cause status
CPT/HCPCS: 90715